=== PATIENT | female | born 1955 | race Caucasian/White ===

== ENCOUNTER 2016-03-31 12:01 | Emergency (ER) | payer BC ==
[2016-03-31 12:10] VITALS: BP 157/80; PULSE 68; RESP 16; TEMP 97.7; O2SAT 96
--- NOTE | 2016-03-31 13:21 | UCPHY ---
H & P Time Seen by Provider: 03/31/16 13:05 Patient Type: New HPI/ROS: This patient presents with a chief complaint of low back pain which began this morning when she suddenly lifted her granddaughter. She localizes her pain to the area overlying the lower lumbar and presacral area to the left side of midline. The pain does not radiate to her buttocks or her legs. She denies any motor or sensory dysfunction. She denies any abdominal pain, nausea or vomiting. She denies any bowel or bladder problems. She has had some remote back problems. Smoking Status: Never smoked Physical Exam: This is a well-developed well-nourished female who is in no acute distress except when she moves and then appears to be quite uncomfortable. Examination of the back reveals some tenderness in the presacral area overlying the left is side adjacent to the SI joint. There is no midline tenderness over the spinous processes of the lumbar spine. There is no CVA tenderness. Straight leg raising causes only back pain. Motor function and sensation are normal. Deep tendon reflexes are symmetric. Constitutional: Initial Vital Signs Temperature (C) 36.5 C 03/31/16 12:06 Heart Rate 68 03/31/16 12:06 Respiratory Rate 16 03/31/16 12:06 Blood Pressure 157/80 H 03/31/16 12:06 O2 Sat (%) 96 03/31/16 12:06 O2 Delivery Mode Room Air Allergies/Adverse Reactions: No Known Allergies Allergy (Verified 03/31/16 12:10) Home Medications: Medication Instructions Recorded CYCLOBENZAPRINE HCL [Flexeril] 5 mg PO TIDPRN PRN #15 tab 03/31/16 Calcium 03/31/16 Magnesium 03/31/16 Multivitamin 03/31/16 Protonix 03/31/16 Medical Decision Making Differential Diagnosis: I find nothing that would suggest that this patient's back pain is related to a serious etiology such as abdominal aneurysm, intra-abdominal pathology of any kind, diskitis, epidural abscess or a herniated disc. Departure - Departure Disposition: Home, Routine, Self-Care Clinical Impression: Low back strain Condition: Good Instructions: Low Back Strain (ED) Additional Instructions: If the pain in her back is not resolved in 1 week you should be re-evaluated. If he develops any weakness or numbness in your legs you should be seen sooner. Difficulty with urination or defecation would also be worrisome. Apply ice to the area of pain in your back intermittently for the next 36-48 hours and then switch to heat applications. Adult Pain & Fever Control: We recommend Acetaminophen (Tylenol) and Ibuprofen (Motrin, Advil) for pain and fever control. When fever is high or pain severe, both drugs can be used at the same time, but at different intervals. Please note the time differences. Your dose is: Acetaminophen [650]mg every 4 to 6 hours ibuprofen [600]mg every [6] hours with food OR naproxen Sodium (Aleve) [440]mg every 12 hours. Note: do not take Acetaminophen with Hydrocodone (Vicodin, Lortab) or Oxycodone (Percocet). These medications also contain Acetaminophen. No more than 3000 mg of Acetaminophen should be taken in 24 hours (for an adult) . The maximal dose of ibuprofen that it is safe in a 24-hour period is 2400 mg. You may take 400 mg every 4 hours, 600 mg every 6 hours or 800 mg every 8 hours safely. Prescriptions: CYCLOBENZAPRINE HCL [Flexeril] 5 mg PO TIDPRN PRN #15 tab PRN Reason: back pain - PQRS PQRS Measurement: Not applicable
== END 2016-03-31 13:28 | disposition home or self-care (01) ==
LOC: CED 12:01
DX: S39.012A Strain of muscle, fascia and tendon of lower back, initial encounter (principal); X50.0XXA Overexertion from strenuous movement or load, initial encounter
CPT/HCPCS: 99202-PO; G0463-PO